=== PATIENT | female | born 1960 | race Hispanic/Latino ===

== ENCOUNTER 2021-10-21 08:02 | Day surgery (SDC) | payer OTHER ==
[2021-10-18 09:20] LABS: BASOPHILS % (AUTO) 0.7 % (0.0-5.0); EOSINOPHILS % (AUTO) 3.3 % (0.0-8.0); HEMATOCRIT 36.1 % (36-48); LYMPHOCYTES % (AUTO) 20.8 % (21.0-51.0); MEAN CORPUSCULAR HEMOGLOBIN 31.2 pg (27.0-33.0); MEAN CORPUSCULAR HGB CONC 32.4 g/dL (32.0-36.0); MEAN CORPUSCULAR VOLUME 96.3 fL (79-99); MONOCYTES % (AUTO) 8.5 % (3.0-13.0); NEUTROPHILS % (AUTO) 66.3 % (40.0-77.0); PLATELET COUNT (AUTO) 150 K/uL (130-400); RED BLOOD CELL COUNT(AUTO) 3.75 MIL/uL (4.00-5.50); RED CELL DISTRIBUTION WIDTH 14.5 % (11.0-15.5); WHITE BLOOD COUNT (AUTO) 5.4 K/uL (4.8-10.8)
[2021-10-18 09:33] LABS: INR 0.93 (0.85-1.15); PROTHROMBIN TIME 10.2 SEC (9.6-11.6)
[2021-10-18 09:35] LABS: PARTIAL THROMBOPLASTIN TIME 25.8 SEC (26.3-35.5)
[2021-10-18 09:40] LABS: CREATININE 0.8 mg/dL (0.5-1.5); POTASSIUM 4.7 mmol/L (3.5-5.1)
[2021-10-18 09:48] LABS: APPEARANCE,URINE CLEAR (CLEAR); BILIRUBIN,URINE NEGATIVE (NEGATIVE); COLOR,URINE YELLOW (YELLOW); GLUCOSE, URINE (UA) >=1000 mg/dL (NEGATIVE); KETONES,URINE NEGATIVE (NEGATIVE); LEUKOCYTE ESTERASE ,URINE NEGATIVE (NEGATIVE); NITRATE,URINE NEGATIVE (NEGATIVE); OCCULT BLOOD,URINE NEGATIVE (NEGATIVE); PH,URINE 5.5 (5.0-8.0); PROTEIN,URINE NEGATIVE (NEGATIVE); UROBILINOGEN,URINE 0.2 mg/dL (0.2-1.0)
[2021-10-18 09:56] LABS: BACTERIA,URINE Rare /HPF (None Seen); RBC,URINE 0-1 /HPF (0-1); SQUAMOUS EPITHELIAL CELL,UR Rare /HPF (0-2); WBC,URINE 0-1 /HPF (0-1)
[2021-10-18 10:55] LABS: B-TYPE NATRIURETIC PEPTIDE 69 pg/mL (0-100)
[2021-10-20 12:11] VITALS: BP 117/79
[2021-10-21] VITALS (8 sets, daily range): BP systolic 119–132; BP diastolic 59–79
[~2021-10-21] VITALS: Ht 154.9 cm; Wt 72.6 kg
[~2021-10-21 08:02] MED LIST: 0.9% NACL 500ML IV.SOLN 500 ML IV SCH; ALEN35TA53 PO; ASPI-1197 PO; DAPA10TA PO; ERGO500093 PO; GABA300C PO; LEVO100C4 PO; LISI5TAB21 PO; NABU-141 PO; OMEP40CA21 PO; PREG150C46 PO; ROSU40TA21 PO
[2021-10-21] MEDS ORDERED: 0.9%NACL 1000ML 1,000 ML IV ONE (09:18)
[2021-10-21] MEDS ORDERED: SODIUM BICARB 50MEQ 50ML VIAL 50 ML ONE (11:33)
[2021-10-21] MEDS ORDERED: NICARDIPINE 25MG INJ IV ONE (11:33)
[2021-10-21] MEDS ORDERED: HEPARIN 10,000 UNIT/10ML (1,000 UNIT/ML) VIAL ONE (11:33)
[2021-10-21] MEDS ORDERED: IOHEXOL-350 50ML VIAL IV ONE (11:33)
[2021-10-21] MEDS ORDERED: IOHEXOL 350 MG/ML 100ML INFUS..BTL IV ONE (11:33)
[2021-10-21] MEDS ORDERED: FENTANYL CITRATE PF 50 MCG/1 ML 2ML VIAL ONE (11:34)
[2021-10-21] MEDS ORDERED: MIDAZOLAM HCL 1 MG/ML 2ML VIAL ONE (11:34)
[2021-10-21] MEDS ORDERED: LIDOCAINE HCL 400MG/20ML VIAL ONE (11:34)
[2021-10-21] MEDS ORDERED: NITROGLYCERIN 50MG VIAL ONE (11:35)
[2021-10-21] MEDS ORDERED: 0.9% NACL 500ML IV.SOLN 500 ML IV SCH (12:30)
== END 2021-10-21 16:15 | disposition home or self-care (01) ==
LOC: DAH 08:02
PROVIDERS: ATTEND Internal Medicine Cardiovascular Disease
DX: R94.39 Abnormal result of other cardiovascular function study (principal); R06.09 Other forms of dyspnea; I20.9 Angina pectoris, unspecified; I10 Essential (primary) hypertension; E03.9 Hypothyroidism, unspecified; K21.9 Gastro-esophageal reflux disease without esophagitis; E11.9 Type 2 diabetes mellitus without complications; E78.5 Hyperlipidemia, unspecified; Z98.890 Other specified postprocedural states; Z82.49 Family history of ischemic heart disease and other diseases of the circulatory system; Z79.82 Long term (current) use of aspirin; Z79.01 Long term (current) use of anticoagulants; Z79.890 Hormone replacement therapy
CPT/HCPCS: 36415; 71045; 80048; 81001; 82948; 83880; 85025; 85610; 85730; 93005; 93454; A4215; A4216; A4221; A4222; A4223 ×3; A4606; A4663; C1769; C1894; J1644 ×2; J2250; J3010; J3490 ×4; J7030; Q9965; Q9967; 99156